=== PATIENT | male | born 1965 | race Caucasian/White ===

== ENCOUNTER 2018-09-24 07:16 | Emergency (ER) | payer SELFPAY ==
[2018-09-24 07:30] VITALS: BP 129/88
--- NOTE | 2018-09-24 07:48 | UC ---
Respiratory Complaint HPI - HPI Summary HPI Summary: 53-year-old male comes in with a chief complaint of cough chest congestion and fevers. One month ago while traveling the patient got sick and was diagnosed with bronchitis by his primary care physician. The travel was in the [place] and he stayed in his own camper. Treatment was a azithromycin and albuterol and Tessalon Perles. He believes the Tessalon Perles did not help. The albuterol does help some with his breathing. After taking the azithromycin he did feel better for couple of days. His son also got sick at that time and was still sick after the patient improved in the patient started getting sick again about 3 weeks ago. The last 3 weeks he's had chest congestion and a cough. Intermittent fevers. He's not bringing up much sputum but when he does is green. Patient is not a smoker. Cough drops help with the cough. - History of Current Complaint Chief Complaint: UCGeneralIllness Stated Complaint: URI Time Seen by Provider: 09/24/18 07:34 Pain Intensity: 0 - Allergies/Home Medications Allergies/Adverse Reactions: Allergies Allergy/AdvReac Type Severity Reaction Status Date / Time No Known Allergies Allergy Verified 09/24/18 07:23 Home Medications: Home Medications Albuterol HFA INHALER* [Ventolin HFA Inhaler*] 1 puff INH ONCE 09/24/18 [ History Confirmed 09/24/18] PMH/Surg Hx/FS Hx/Imm Hx Previously Healthy: Yes - Surgical History Surgical History: None - Family History Known Family History: Positive: Non-Contributory - Social History Alcohol Use: Daily Alcohol Amount: 2-4 drinks/ day Substance Use Type: None Smoking Status (MU): Current Every Day Smoker Review of Systems All Other Systems Reviewed And Are Negative: Yes Constitutional: Positive: Fever Skin: Positive: Negative Eyes: Positive: Negative ENT: Positive: Nasal Discharge Respiratory: Positive: Shortness Of Breath, Cough, Other - see hpi Cardiovascular: Positive: Negative Gastrointestinal: Positive: Negative Motor: Positive: Negative Neurovascular: Positive: Negative Musculoskeletal: Positive: Negative Neurological: Positive: Negative Psychological: Positive: Negative Is Patient Immunocompromised?: No Physical Exam Triage Information Reviewed: Yes Appearance: No Pain Distress, Well-Nourished, Ill-Appearing - mild Vital Signs: Initial Vital Signs Temp 100.5 F 09/24/18 07:24 Pulse 87 09/24/18 07:24 Resp 22 09/24/18 07:24 BP 129/88 09/24/18 07:24 Pulse Ox 99 09/24/18 07:24 Vital Signs Reviewed: Yes Eye Exam: Normal Eyes: Positive: Conjunctiva Clear ENT: Positive: Nasal congestion, TMs normal Neck: Positive: Supple Respiratory: Positive: Lungs clear, No accessory muscle use, Other: - persistent dry cough Cardiovascular: Positive: RRR Musculoskeletal: Positive: Strength Intact, ROM Intact Neurological Exam: Normal Neurological: Positive: Alert, Muscle Tone Normal Psychological Exam: Normal Psychological: Positive: Normal Response To Family, Age Appropriate Behavior Skin Exam: Normal Respiratory Course/Dx - Course Course Of Treatment: Patient Name: DANIEL LEWIS SR Medical Record#: [id number] Ordering Physician: Eric Modi MD Acct.#: [id number] : 1965 Age: 53 Sex: M Location: [facility] Exam Date: 09/24/18741 ADM Status: REG ER Order Information: CHEST PA LAT 2 VWS Accession Number: [id number] CPT: 80352 INDICATION: Cough and congestion, fever. COMPARISON: There are no relevant prior studies available for comparison. TECHNIQUE: Dual-energy PA and lateral views of the chest were obtained. FINDINGS: The heart is within normal limits in size. Mediastinal and hilar contours appear within normal limits. The lungs are clear. No pleural effusion is present. IMPRESSION: NO EVIDENCE FOR ACTIVE CARDIOPULMONARY DISEASE. <Electronically signed by Suman Fonseca MD in OV> 09/24/18 0813 I discussed the chest x-ray results with the patient and his . At this time there is no pneumonia. Patient's been sick for 3 weeks. He has a fever here in clinic. Patient declined acetaminophen and ibuprofen saying he prefers to try some at home. Patient started been treated with azithromycin. Plan is time is to treat with doxycycline and prednisone and albuterol and over-the- counter expectorants and cough suppressants. Patient she get reevaluated with any worsening of condition or if not improving. - Differential Dx/Diagnosis Provider Diagnosis: Bronchitis with bronchospasm Discharge - Sign-Out/Discharge Documenting (check all that apply): Patient Departure All imaging exams completed and their final reports reviewed: Yes - Discharge Plan Condition: Stable Disposition: HOME Prescriptions: Albuterol HFA INHALER* [Ventolin HFA Inhaler*] 2 puff INH Q4H PRN #1 mdi PRN Reason: Wheezing DOXYcycline CAP(*) [DOXYcycline 100MG CAP(*)] 100 mg PO BID #20 cap predniSONE TAB* [Deltasone 20 MG TAB*] 40 mg PO DAILY #10 tab Patient Education Materials: Acute Bronchitis (ED), Bronchospasm (ED) Referrals: [facility] [Outside] Additional Instructions: FOLLOW UP WITH YOUR DOCTOR IF NOT COMPLETELY IMPROVED. GET REEVALUATED SOONER IF YOUR CONDITION WORSENS OR ANY QUESTIONS OR CONCERNS. - Billing Disposition and Condition Condition: STABLE Disposition: Home
== END 2018-09-24 09:05 | disposition home or self-care (01) ==
LOC: UCEAST 07:16
DX: J20.9 Acute bronchitis, unspecified (principal); F17.200 Nicotine dependence, unspecified, uncomplicated
CPT/HCPCS: 71046; 99212; G0463